=== PATIENT | female | born 2000 | race Caucasian/White ===

== ENCOUNTER 2020-04-13 18:19 | Emergency (ER) | payer OTHER ==
[2020-04-13 18:44] VITALS: BP 120/58; PULSE 102
--- NOTE | 2020-04-13 19:45 | CR ---
PROCEDURE INFORMATION: Exam: XR Left Foot Exam date and time: 04/13/2020 7:35 PM Age: 19 years old Clinical indication: Other: Dropped cinder block on 1st and 2nd toe; Additional info: Pain TECHNIQUE: Imaging protocol: XR Left foot. Views: 1 or 2 views. COMPARISON: No relevant prior studies available. FINDINGS: Bones/joints: Normal. Soft tissues: Normal. IMPRESSION: No acute findings.
--- NOTE | 2020-04-13 20:12 | EDM.PDOC ---
ED HPI GENERAL MEDICAL PROBLEM - General Chief Complaint: Lower Extremity Injury/Pain Stated Complaint: dropped a cinder block on toe Time Seen by Provider: 04/13/20 20:05 Source of Information: Reports: Patient History Limitations: Reports: No Limitations - History of Present Illness INITIAL COMMENTS - FREE TEXT/NARRATIVE: ED ambulatory, reports pain to left forefoot primarily 1st and 2nd toe after dropping cinderblock on foot. No other c/o Treatments SOCCER REFEREE: Reports: Other (see below) Other Treatments SOCCER REFEREE: none Left Toe-Hailux Pain Score (Numeric/FACES): 6 - Related Data Allergies Allergy/AdvReac Type Severity Reaction Status Date / Time No Known Allergies Allergy Unverified 04/13/20 18:44 Home Meds: Home Meds Norgestimate-Ethinyl Estradiol [Ortho Tri-Cyclen 28 Tablet] 1 tab PO DAILY 09/29 [History] Losartan Potassium 50 mg PO DAILY 04/13/20 [History] Past Medical History - Past Health History Medical/Surgical History: Denies Medical/Surgical History Social & Family History - Family History Family Medical History: Noncontributory - Tobacco Use Smoking Status *Q: Never Smoker - Caffeine Use Caffeine Use: Reports: None - Recreational Drug Use Recreational Drug Use: No Review of Systems - Review of Systems Review Of Systems: Comprehensive ROS is negative, except as noted in HPI. ED EXAM, GENERAL - Physical Exam Exam: See Below Exam Limited By: No Limitations General Appearance: Alert, Mild Distress Eye Exam: Bilateral Eye: EOMI Ears: Normal External Exam, Hearing Grossly Normal Head: Atraumatic Neck: Full Range of Motion Respiratory/Chest: No Respiratory Distress, Normal Breath Sounds Cardiovascular: Normal Peripheral Pulses Extremities: Other (mild redness minimal swelling left great toe, superficial scratch proximal great toe mild tenderness medial left distal forefoot) Neurological: Alert, Oriented, Normal Cognition Skin Exam: Warm, Dry Course - Vital Signs Last Recorded V/S: Last Vital Signs Temp 97.4 F 04/13/20 18:40 Pulse 102 H 04/13/20 18:40 Resp 14 04/13/20 18:40 BP 120/58 L 04/13/20 18:40 Pulse Ox 98 04/13/20 18:40 Departure - Departure Time of Disposition: 20:32 Disposition: Home, Self-Care 01 Condition: Good Clinical Impression: Contusion of left foot Qualifiers: Encounter type: initial encounter Qualified Code(s): S90.32XA - Contusion of left foot, initial encounter - Discharge Information *PRESCRIPTION DRUG MONITORING PROGRAM REVIEWED*: No *COPY OF PRESCRIPTION DRUG MONITORING REPORT IN PATIENT DANILO: No Instructions: Contusion, [id number] Referrals: Tawana Loomis PA-C [Primary Care Provider] - Forms: ED Department Discharge Additional Instructions: alternate tylenol 650mg and ibuprofen 600mg every 4 hours as needed elevate ice weight bearing as tolerated follow up next week if not improved. Sepsis Event Note (ED) - Evaluation Sepsis Screening Result: No Definite Risk
== END 2020-04-13 20:41 | disposition home or self-care (01) ==
LOC: DL.ED 18:19
DX: S90.112A Contusion of left great toe without damage to nail, initial encounter (principal); Z79.899 Other long term (current) drug therapy; W20.8XXA Other cause of strike by thrown, projected or falling object, initial encounter
CPT/HCPCS: 73620-LT; 99283-25